=== PATIENT | male | born 1950 | race Hispanic/Latino ===

== ENCOUNTER → 2023-10-15 | Outpatient (CLI) | payer OTHER, MEDICARE ==
[2023-10-14 16:38] VITALS: BP 157/70; PULSE 72; RESP 17
[2023-10-14 16:41] LABS: BASOPHILS # (AUTO) 0.03 K/uL (0.00-0.20); BASOPHILS % (AUTO) 0.8 % (0.0-5.0); EOSINOPHILS # (AUTO) 0.22 K/uL (0.00-0.70); EOSINOPHILS % (AUTO) 5.5 % (0.0-8.0); LYMPHOCYTES # (AUTO) 1.1 K/uL (1.0-4.8); LYMPHOCYTES % (AUTO) 28.1 % (21.0-51.0); MEAN CORPUSCULAR HGB CONC 32.3 g/dL (32.0-36.0); MONOCYTES # (AUTO) 0.4 K/uL (0.1-1.0); MONOCYTES % (AUTO) 10.6 % (3.0-13.0); NEUTROPHILS # (AUTO) 2.2 K/uL (1.8-7.7); PLATELET COUNT (AUTO) 151 K/uL (130-400); RED BLOOD CELL COUNT(AUTO) 3.89 MIL/uL (4.50-6.20); RED CELL DISTRIBUTION WIDTH 14.6 % (11.0-15.5)
[2023-10-14 16:58] LABS: INR 0.98 (0.85-1.15); PROTHROMBIN TIME 11.4 SEC (9.6-11.6)
[2023-10-14 16:59] LABS: PARTIAL THROMBOPLASTIN TIME 29.9 SEC (26.3-35.5)
[2023-10-14 17:06] LABS: CREATININE 3.2 mg/dL (0.5-1.5); POTASSIUM 4.4 mmol/L (3.5-5.1)
[~2023-10-15] VITALS: Ht 170.2 cm; Wt 74.4 kg
[~2023-10-15] MED LIST: BUPIVACAINE/PF 0.5% 30ML VIAL ONE; CEFAZOLIN SODIUM 1 GM VIAL ONE; CHOL400T4 PO; DEXAMETHASONE SOD PHOSPHATE 4 MG/ML 1ML VIAL ONE; FENTANYL CITRATE PF 50 MCG/1 ML 2ML VIAL ONE; FOLI1TAB85 PO; LIDOCAINE HCL 1% 20 ML VIAL ONE; LIDOCAINE PF 100MG/5ML (2%) SYRINGE 5ML ONE; MIDAZOLAM HCL 1 MG/ML 2ML VIAL ONE; ONDANSETRON 4MG INJ ONE; PROPOFOL 10 MG/ML 20ML VIAL IV ONE; ROCURONIUM BROMIDE 10MG/1ML 5ML VL ONE; SEVE800T27 PO
== END | disposition home or self-care (01) ==
LOC: EDSTATUS 10-14 16:00 → DAH 10:27 → LAB 15:53
PROVIDERS: ATTEND Thoracic Surgery (Cardiothoracic Vascular Surgery)
DX: I77.0 Arteriovenous fistula, acquired (principal); R42 Dizziness and giddiness; F17.210 Nicotine dependence, cigarettes, uncomplicated; Z79.01 Long term (current) use of anticoagulants
CPT/HCPCS: 71045; 80048; 85025; 85610; 85730; 86850; 86900; 86901; 36415; 93005; A6260; J0690; J1100; J1644; J2001; J2250; J2405; J2704; J3010; J3490; J0665

== ENCOUNTER 2023-11-26 08:35 | Day surgery (SDC) | payer OTHER, MEDICARE ==
[2023-11-25 14:52] LABS: HEMATOCRIT 38.1 % (42-54); MEAN CORPUSCULAR HEMOGLOBIN 28.9 pg (27.0-33.0); MEAN CORPUSCULAR HGB CONC 32.5 g/dL (32.0-36.0); MEAN CORPUSCULAR VOLUME 88.8 fL (79-99); RED BLOOD CELL COUNT(AUTO) 4.29 MIL/uL (4.50-6.20); RED CELL DISTRIBUTION WIDTH 14.6 % (11.0-15.5); WHITE BLOOD COUNT (AUTO) 3.5 K/uL (4.8-10.8)
[2023-11-25 14:59] LABS: CREATININE 3.3 mg/dL (0.5-1.5); POTASSIUM 4.3 mmol/L (3.5-5.1)
[2023-11-25 15:01] LABS: INR 0.98 (0.85-1.15); PROTHROMBIN TIME 11.4 SEC (9.6-11.6)
[2023-11-25 15:02] LABS: PARTIAL THROMBOPLASTIN TIME 30.8 SEC (26.3-35.5)
[2023-11-25 15:35] VITALS: BP 199/76; PULSE 66; RESP 15
[2023-11-26] VITALS (18 sets, daily range): BP systolic 142–187; BP diastolic 55–79; PULSE 63–84; RESP 10–19
[~2023-11-26] VITALS: Ht 170.2 cm; Wt 74.2 kg
[~2023-11-26 08:35] MED LIST changes: +0.9% NACL 500ML IV.SOLN 500 ML IV ONE; -BUPIVACAINE/PF 0.5% 30ML VIAL ONE; -CEFAZOLIN SODIUM 1 GM VIAL ONE; +CEFAZOLIN SODIUM 2 GM VIAL ONE; -DEXAMETHASONE SOD PHOSPHATE 4 MG/ML 1ML VIAL ONE; -FENTANYL CITRATE PF 50 MCG/1 ML 2ML VIAL ONE; +IRON PO; -LIDOCAINE HCL 1% 20 ML VIAL ONE; -LIDOCAINE PF 100MG/5ML (2%) SYRINGE 5ML ONE; -MIDAZOLAM HCL 1 MG/ML 2ML VIAL ONE; -ONDANSETRON 4MG INJ ONE; -PROPOFOL 10 MG/ML 20ML VIAL IV ONE; -ROCURONIUM BROMIDE 10MG/1ML 5ML VL ONE
[2023-11-26] MEDS ORDERED: CEFAZOLIN SODIUM 1 GM VIAL ONE (08:57)
[2023-11-26] MEDS ORDERED: BUPIVACAINE/PF 0.5% 30ML VIAL ONE (08:58)
[2023-11-26] MEDS ORDERED: LIDOCAINE HCL 1% 20 ML VIAL ONE (08:58)
[2023-11-26] MEDS ORDERED: LIDOCAINE PF 100MG/5ML (2%) SYRINGE 5ML ONE (09:35)
[2023-11-26] MEDS ORDERED: MIDAZOLAM HCL 1 MG/ML 2ML VIAL ONE (09:37)
[2023-11-26] MEDS ORDERED: PROPOFOL 10 MG/ML 20ML VIAL IV ONE (09:37)
[2023-11-26] MEDS ORDERED: FENTANYL CITRATE PF 50 MCG/1 ML 2ML VIAL ONE ×2 (09:38→10:23)
[2023-11-26 09:39] LABS: CREATININE 4.7 mg/dL (0.5-1.5); POTASSIUM 4.1 mmol/L (3.5-5.1)
[2023-11-26] MEDS ORDERED: EPHEDRINE SULFATE 50 MG/ML AMPULE ONE (09:54)
[2023-11-26] MEDS ORDERED: DEXAMETHASONE SOD PHOSPHATE 4 MG/ML 1ML VIAL ONE (09:54)
[2023-11-26] MEDS ORDERED: ONDANSETRON 4MG INJ ONE (09:54)
[2023-11-26] MEDS: BUPIVACAINE/PF 0.5% 30ML VIAL INJ ONE (10:23)
[2023-11-26] MEDS: LIDOCAINE HCL 1% 20 ML VIAL INJ ONE (10:23)
[2023-11-26] MEDS ORDERED: HEPARIN 10,000 UNIT/10ML (1,000 UNIT/ML) VIAL ONE (10:33)
[2023-11-26] MEDS ORDERED: PROTAMINE SULFATE 10 MG/ML 25ML VIAL IV ONE (10:57)
[2023-11-26] MEDS: ONDANSETRON 4MG INJ ONE (11:57)
[2023-11-26] MEDS: MEPERIDINE-PF 25 MG/ML SYG ONE ×2 (12:00→12:30)
[2023-11-26] MEDS: HYDRALAZINE 20MG/ML VIAL ONE (12:02)
== END 2023-11-26 13:47 | disposition home or self-care (01) ==
LOC: DAH 08:35
PROVIDERS: ATTEND Thoracic Surgery (Cardiothoracic Vascular Surgery)
DX: I77.0 Arteriovenous fistula, acquired (principal); F17.210 Nicotine dependence, cigarettes, uncomplicated; N18.6 End stage renal disease; Z79.899 Other long term (current) drug therapy; Z98.890 Other specified postprocedural states
CPT/HCPCS: 80048 ×2; 85027; 85610; 85730; 86850 ×2; 86900 ×2; 86901 ×2; 36415 ×2; 71045; 93005; 35190; 88304; A6260; J1100; A4663 ×2; J7030; A4452; J7040; J3010 ×2; J0690 ×2; J2001; J0360; J3490; J1644 ×2; J2250; J2704; J2405 ×2; J0665 ×2; J2175 ×2; A6446; A4649; C1713 ×2; A4215; A4213; A4222; A4221; A4216; J2720; A4223 ×2; G0168